=== PATIENT | female | born 1960 | race Caucasian/White ===

== ENCOUNTER 2020-10-12 10:32 | Emergency (ER) | payer MEDICAID ==
--- NOTE | 2020-10-12 11:22 | EDM.PDOC ---
ED HPI GENERAL MEDICAL PROBLEM - General Chief Complaint: Neuro Symptoms/Deficits Stated Complaint: NEUROLOGICAL Time Seen by Provider: 10/12/20 11:03 Source of Information: Reports: Patient, Family, RN Notes Reviewed History Limitations: Reports: No Limitations - History of Present Illness INITIAL COMMENTS - FREE TEXT/NARRATIVE: 60-year-old female presents to the emergency department today complaint of slurred speech, last known well time was about 930 today for hour and a half prior to presentation however feels her speech has returned to baseline. Does have a known history of DVT which she is on Coumadin also admits that she has been having problems with confusion and balance issues for over the last week or so also admits to 30 pound weight loss in 2 months. At this time she is asymptomatic - Related Data Allergies Allergy/AdvReac Type Severity Reaction Status Date / Time propoxyphene [From Darvon] AdvReac Irritabilit Verified 10/12/20 10:44 y Home Meds: Home Meds Citalopram [Citalopram HBr] 20 mg PO DAILY 09/01/18 [History] LORazepam 0.5 mg PO ASDIRECTED PRN 09/01/18 [History] Levothyroxine [Sythroid] 100 mcg PO DAILY 09/01/18 [History] Lisinopril 10 mg PO DAILY 09/01/18 [History] Metoprolol Tartrate 50 mg PO BID 09/01/18 [History] Warfarin [Coumadin] 5 mg PO DAILY 09/01/18 [History] Sertraline [Zoloft] 100 mg PO BID 10/12/20 [History] Sulfamethoxazole/Trimethoprim [Bactrim Ds Tablet] 1 each PO BID #6 tablet 10/12/20 [Rx] Past Medical History HEENT History: Reports: Impaired Vision Cardiovascular History: Reports: Hypertension Respiratory History: Reports: COPD Gastrointestinal History: Reports: Hiatal Hernia, Irritable Bowel Syndrome PLANNING LEAD History: Reports: Musculoskeletal History: Reports: Back Pain, Chronic Psychiatric History: Reports: Anxiety, Depression, Panic Attack Endocrine/Metabolic History: Reports: Hypothyroidism Hematologic History: Reports: Anticoagulation Therapy, Blood Transfusion(s), Other (See Below) - Infectious Disease History Infectious Disease History: Reports: Chicken Pox, Measles - Past Surgical History Head Surgeries/Procedures: Reports: None HEENT Surgical History: Reports: Adenoidectomy, Tonsillectomy Cardiovascular Surgical History: Reports: None Respiratory Surgical History: Reports: None GI Surgical History: Reports: Appendectomy, Cholecystectomy, Hernia, Abdominal, Other (See Below) Other GI Surgeries/Procedures: bowel surgery Endocrine Surgical History: Reports: Thyroidectomy Musculoskeletal Surgical History: Reports: Knee Replacement Dermatological Surgical History: Reports: None Social & Family History - Tobacco Use Tobacco Use Status *Q: Current Every Day Tobacco User Years of Tobacco use: 45 Packs/Tins Daily: 1 Used Tobacco, but Quit: No Second Hand Smoke Exposure: No - Caffeine Use Caffeine Use: Reports: Coffee, Soda, Tea - Recreational Drug Use Recreational Drug Use: No ED ROS GENERAL - Review of Systems Review Of Systems: See Below Constitutional: Reports: No Symptoms HEENT: Reports: No Symptoms Respiratory: Reports: No Symptoms Cardiovascular: Reports: No Symptoms GI/Abdominal: Reports: No Symptoms : Reports: No Symptoms Neurological: Reports: Confusion, Dizziness, Trouble Speaking ED EXAM, NEURO - Physical Exam Exam: See Below Text/Narrative:: Cranial nerves II test with pupillary light reflex 5 mm to 3 mm bilaterally, CN III test pupillary constriction, lid elevation and eye abduction bilaterally, CN IV downward movement of eyes bilaterally, CN V good jaw movement, CN lateral deviation of the eyes bilaterally to finger movement, CN VII symmetrical smile shows teeth without difficulty, CN VIII pass finger rub to ears bilaterally, CN IX adequate voice and tone, CN X adequate voice and tone no difficulty swallowing, CN XI can shrug shoulders without difficulty, CN XII can stick tongue out without difficulty, cranial nerves II to XII intact as tested, power is 5 out 5 in upper and lower extremities, patellar reflex, biceps reflex +2 can do finger to nose without difficulty, no dysdiadochokinesis, no difficulty with rapid alternating movements can do [id number] without difficulty, Romberg is negative, has adequate gait can do heel to toe, can toe walk and heel walk no cerebellar dysfunction without difficulty, no focal neurologic deficit Exam Limited By: No Limitations General Appearance: Alert, WD/WN, No Apparent Distress Respiratory/Chest: No Respiratory Distress, Lungs Clear, Normal Breath Sounds, No Accessory Muscle Use, Chest Non-Tender Cardiovascular: Regular Rate, Rhythm, No Murmur GI/Abdominal: Soft, Non-Tender Neurological: Alert, CN II-XII Intact, No Motor/Sensory Deficits, Oriented x 3 Course - Vital Signs Last Recorded V/S: Last Vital Signs Temp 97.7 F 10/12/20 10:50 Pulse 84 10/12/20 10:50 Resp 18 10/12/20 10:50 BP 125/77 10/12/20 10:50 Pulse Ox 97 10/12/20 10:50 - Orders/Labs/Meds Orders: Active Orders 24 hr Category Date Time Status EKG Documentation Completion [RC] ASDIRECTED Care 10/12/20 11:17 Active Peripheral IV Care [RC] . DIRECTED Care 10/12/20 12:55 Active CULTURE URINE [RM] Urgent Lab 10/12/20 12:15 Received Sodium Chloride 0.9% [Normal Saline] 1,000 ml Med 10/12/20 13:00 Active IV ASDIRECTED Sodium Chloride 0.9% [Saline Flush] Med 10/12/20 12:55 Active 10 ml FLUSH ASDIRECTED PRN Peripheral IV Insertion Adult [OM.PC] Urgent Oth 10/12/20 12:55 Ordered EKG 12 Lead [EK] Stat Ther 10/12/20 11:16 Ordered Medication Orders Sodium Chloride (Normal Saline) 1,000 mls @ 500 mls/hr IV ASDIRECTED ERNA Last Admin: 10/12/20 13:06 Dose: 500 mls/hr Documented by: LEANDRA Sodium Chloride (Saline Flush) 10 ml FLUSH ASDIRECTED PRN PRN Reason: Keep Vein Open Last Admin: 10/12/20 13:06 Dose: 10 ml Documented by: LEANDRA Labs: Laboratory Tests 10/12/20 10/12/20 10/12/20 Range/Units 11:18 11:30 11:30 WBC 5.8 (4.5-11.0) K/uL RBC 4.68 (3.30-5.50) M/uL Hgb 13.3 (12.0-15.0) g/dL Hct 41.3 (36.0-48.0) % MCV 88 (80-98) fL MCH 28 (27-31) pg MCHC 32 (32-36) % Plt Count 248 (150-400) K/uL Neut % (Auto) 67 H (36-66) % Lymph % (Auto) 27 (24-44) % [place] % (Auto) 6 (2-6) % Eos % (Auto) 0 L (2-4) % Baso % (Auto) 0 (0-1) % PT 13.7 H (9.5-12.0) sec INR 1.26 H (0.80-1.20) APTT 25.0 L (27.0-36.0) sec Sodium (140-148) mmol/L Potassium (3.6-5.2) mmol/L Chloride (100-108) mmol/L Carbon Dioxide (21-32) mmol/L Anion Gap (5.0-14.0) mmol/L BUN (7-18) mg/dL Creatinine (0.6-1.0) mg/dL Est Cr Clr Drug Dosing mL/min Estimated GFR (MDRD) (>60) Glucose (74-106) mg/dL Lactic Acid (0.4-2.0) mmol/L Calcium (8.5-10.1) mg/dL Total Bilirubin (0.2-1.0) mg/dL AST (15-37) U/L ALT (12-78) U/L Alkaline Phosphatase (46-116) U/L Troponin I (0.000-0.056) ng/mL C-Reactive Protein (0.0-0.3) mg/dL Total Protein (6.4-8.2) g/dL Albumin (3.4-5.0) g/dL Globulin (2.3-3.5) g/dL Albumin/Globulin Ratio (1.2-2.2) Urine Color Yellow (YELLOW) Urine Appearance Cloudy A (CLEAR) Urine pH 5.5 (5.0-8.0) Ur Specific [place] 1.030 (1.008-1.030) Urine Protein 30 H (NEGATIVE) mg/dL Urine Glucose (UA) Normal (NEGATIVE) mg/dL Urine Ketones Negative (NEGATIVE) mg/dL Urine Occult Blood Trace-intact H (NEGATIVE) Urine Nitrite Positive H (NEGATIVE) Urine Bilirubin Small (NEGATIVE) Urine Urobilinogen 0.2 (0.2-1.0) EU/dL Ur Leukocyte Esterase Small (NEGATIVE) Urine RBC 0-5 (0-5) Urine WBC 40-50 H (0-5) Ur Epithelial Cells Moderate Amorphous Sediment Few Urine Bacteria Many Urine Mucus Rare Ethyl Alcohol mg/dL 10/12/20 10/12/20 10/12/20 Range/Units 11:30 11:30 11:30 WBC (4.5-11.0) K/uL RBC (3.30-5.50) M/uL Hgb (12.0-15.0) g/dL Hct (36.0-48.0) % MCV (80-98) fL MCH (27-31) pg MCHC (32-36) % Plt Count (150-400) K/uL Neut % (Auto) (36-66) % Lymph % (Auto) (24-44) % [place] % (Auto) (2-6) % Eos % (Auto) (2-4) % Baso % (Auto) (0-1) % PT (9.5-12.0) sec INR (0.80-1.20) APTT (27.0-36.0) sec Sodium 143 (140-148) mmol/L Potassium 3.6 (3.6-5.2) mmol/L Chloride 108 (100-108) mmol/L Carbon Dioxide 25 (21-32) mmol/L Anion Gap 10.4 (5.0-14.0) mmol/L BUN 23 H D (7-18) mg/dL Creatinine 0.9 (0.6-1.0) mg/dL Est Cr Clr Drug Dosing 60.67 mL/min Estimated GFR (MDRD) > 60 (>60) Glucose 118 H (74-106) mg/dL Lactic Acid 2.0 (0.4-2.0) mmol/L Calcium 8.9 (8.5-10.1) mg/dL Total Bilirubin 0.3 (0.2-1.0) mg/dL AST 7 L (15-37) U/L ALT 13 (12-78) U/L Alkaline Phosphatase 97 (46-116) U/L Troponin I < 0.017 (0.000-0.056) ng/mL C-Reactive Protein 0.15 (0.0-0.3) mg/dL Total Protein 6.5 (6.4-8.2) g/dL Albumin 3.1 L (3.4-5.0) g/dL Globulin 3.4 (2.3-3.5) g/dL Albumin/Globulin Ratio 0.9 L (1.2-2.2) Urine Color (YELLOW) Urine Appearance (CLEAR) Urine pH (5.0-8.0) Ur Specific [place] (1.008-1.030) Urine Protein (NEGATIVE) mg/dL Urine Glucose (UA) (NEGATIVE) mg/dL Urine Ketones (NEGATIVE) mg/dL Urine Occult Blood (NEGATIVE) Urine Nitrite (NEGATIVE) Urine Bilirubin (NEGATIVE) Urine Urobilinogen (0.2-1.0) EU/dL Ur Leukocyte Esterase (NEGATIVE) Urine RBC (0-5) Urine WBC (0-5) Ur Epithelial Cells Amorphous Sediment Urine Bacteria Urine Mucus Ethyl Alcohol < 3 mg/dL Meds: Medications Generic Name Dose Route Start Last Admin Trade Name Freq PRN Reason Stop Dose Admin Sodium Chloride 1,000 mls @ 500 mls/hr 10/12/20 13:00 10/12/20 13:06 Normal Saline IV 500 mls/hr ASDIRECTED ERNA Administration Sodium Chloride 10 ml 10/12/20 12:55 10/12/20 13:06 Saline Flush FLUSH 10 ml ASDIRECTED PRN Administration Keep Vein Open Discontinued Medications Generic Name Dose Route Start Last Admin Trade Name Freq PRN Reason Stop Dose Admin Sodium Chloride 100 mls @ 3.5 mls/sec 10/12/20 13:30 10/12/20 13:38 Normal Saline IV 10/12/20 13:31 3.5 mls/sec ASDIRECTED ERNA Administration Iopamidol 100 ml 10/12/20 13:30 10/12/20 13:38 [id number] (76%) IV 10/12/20 13:31 100 ml . DIRECTED ERNA Administration Ketorolac Tromethamine 30 mg 10/12/20 12:55 10/12/20 13:04 Toradol IVPUSH 10/12/20 12:56 30 mg ONETIME ONE Administration Sodium Chloride 10 ml 10/12/20 13:23 Saline Flush FLUSH 10/12/20 13:24 ONETIME ONE Departure - Departure Time of Disposition: 15:04 Disposition: Home, Self-Care 01 Condition: Fair Clinical Impression: Stroke-like symptoms Urinary tract infection Qualifiers: Urinary tract infection type: acute cystitis Hematuria presence: without hematuria Qualified Code(s): N30.00 - Acute cystitis without hematuria - Discharge Information Prescriptions: Sulfamethoxazole/Trimethoprim [Bactrim Ds Tablet] 1 each PO BID #6 tablet Instructions: Urinary Tract Infection, Adult, [id number] Referrals: Stephen Duvall Sr, MD [Primary Care Provider] - Forms: ED Department Discharge Additional Instructions: Please follow-up with Dr. Duvall tomorrow I have spoken with him he is aware of your results, he plans to adjust your Coumadin and will finish the stroke work-up which may include an MRI of the brain, ultrasound of the carotids and echocardiogram., Call return to the emergency department worsening of symptoms Sepsis Event Note (ED) - Evaluation Sepsis Screening Result: No Definite Risk - Focused Exam Vital Signs: Vital Signs Temp Pulse Resp BP Pulse Ox 10/12/20 10:50 97.7 F 84 18 125/77 97 10/12/20 10:49 97.7 F 84 18 125/77 97 - My Orders Last 24 Hours: My Active Orders 10/12/20 11:16 EKG 12 Lead [EK] Stat 10/12/20 11:17 EKG Documentation Completion [RC] ASDIRECTED 10/12/20 12:15 CULTURE URINE [RM] Urgent 10/12/20 12:55 Peripheral IV Care [RC] . DIRECTED Sodium Chloride 0.9% [Saline Flush] 10 ml FLUSH ASDIRECTED PRN Peripheral IV Insertion Adult [OM.PC] Urgent 10/12/20 13:00 Sodium Chloride 0.9% [Normal Saline] 1,000 ml IV ASDIRECTED - Assessment/Plan Last 24 Hours: My Active Orders 10/12/20 11:16 EKG 12 Lead [EK] Stat 10/12/20 11:17 EKG Documentation Completion [RC] ASDIRECTED 10/12/20 12:15 CULTURE URINE [RM] Urgent 10/12/20 12:55 Peripheral IV Care [RC] . DIRECTED Sodium Chloride 0.9% [Saline Flush] 10 ml FLUSH ASDIRECTED PRN Peripheral IV Insertion Adult [OM.PC] Urgent 10/12/20 13:00 Sodium Chloride 0.9% [Normal Saline] 1,000 ml IV ASDIRECTED Plan: Assessment Acuity = acute Site and laterality = strokelike symptoms completely resolved Etiology = unknown Manifestations = none Location of injury = Home Lab values = CBC unremarkable INR subtherapeutic 1.26 troponin was negative remainder of CMP unremarkable urinalysis positive for nitrates 40-50 WBCs consistent with pyuria cultures pending CT CTA showed no acute process or stenosis Plan I did review lab work CT scan results with her she remained asymptomatic while in the emergency department also called and discussed care with her primary care at 1505 she is going to follow-up for further evaluation of strokelike symptoms outpatient setting. Because her urine is suspicious for urinary tract infection elected to treat empirically Bactrim DS 1 tab p.o. twice daily x3 days. She has an appointment with her primary care tomorrow for further evaluation This note was dictated using [employer] voice recognition software please call with any questions on syntax or grammar.
--- NOTE | 2020-10-12 12:45 | CT ---
Head wo Cont CLINICAL HISTORY: Slurred speech COMPARISON: March 23, 2020 TECHNIQUE: Transverse scans were obtained from the base of the skull through the vertex without IV contrast on a multislice, multidetector CT scanner. Auto dosage reduction and iterative reconstruction techniques employed. FINDINGS: No focal abnormal parenchymal density is identified. There is no mass effect, hemorrhage, or extraaxial collection. The basal cisterns and sulci over the convexities are mildly prominent. The ventricles are normal for age. IMPRESSION: No acute intracranial process Mild age-related atrophy
[2020-10-12] MEDS ORDERED: Sodium Chloride 0.9% 10 ML Syringe FLUSH PRN (12:55)
[2020-10-12] MEDS ORDERED: Ketorolac 30 MG/ML SDV IVPUSH ONE (12:55)
[2020-10-12] MEDS ORDERED: Sodium Chloride 0.9% 1,000 ML IV SCH (13:00)
[2020-10-12] MEDS ORDERED: Sodium Chloride 0.9% 10 ML Syringe FLUSH ONE (13:23)
[2020-10-12] MEDS ORDERED: Sodium Chloride 0.9% 100 ML IV SCH (13:30)
[2020-10-12] MEDS ORDERED: Iopamidol 755 Mg/ML 100 ML Bottle IV SCH (13:30)
--- NOTE | 2020-10-12 14:36 | CT ---
Ang Head CLINICAL HISTORY: Slurred speech. COMPARISON: Noncontrast CT brain same day TECHNIQUE: Multiple volume rendered and MIP 3D reconstructions were generated from source images obtained on a spiral scanner before and after intravenous iodinated contrast enhancement Auto dosage reduction and iterative reconstruction techniques employed. FINDINGS: Internal carotid arteries: Show some calcified plaque bilaterally without significant stenosis or aneurysm. Anterior cerebral arteries: The right A1 segment is somewhat atretic compared to left. The anterior communicating artery is patent Middle cerebral arteries: Normal course and contour Posterior cerebral arteries: The right posterior cerebral artery is fed by the right carotid circulation. The left posterior circulation is fed by the basilar artery. Vertebral/basilar arteries: There is a small distal right vertebral artery. Basilar artery is patent IMPRESSION: No significant stenosis or vessel cut off Atretic A1 segment of the right anterior cerebral artery Partial persistence of circulation on the right described above Small right vertebral artery
== END 2020-10-12 15:19 | disposition home or self-care (01) ==
LOC: JP.ED 10:32
DX: N30.00 Acute cystitis without hematuria (principal); R47.81 Slurred speech; I10 Essential (primary) hypertension; J44.9 Chronic obstructive pulmonary disease, unspecified; E03.9 Hypothyroidism, unspecified; Z72.0 Tobacco use; Z88.8 Allergy status to other drugs, medicaments and biological substances; Z79.01 Long term (current) use of anticoagulants; Z79.899 Other long term (current) drug therapy
CPT/HCPCS: 36415; 70450; 70496; 80053; 80307; 81001; 83605; 84484; 85025; 85610; 85730; 86140; 87086; 87088; 87186; 93005; 96374; 99285; J1885; J7030; Q9967; 99284

== ENCOUNTER 2022-05-12 18:42 | Emergency (ER) | payer OTHER, MEDICAID ==
[~2022-05-12 18:42] MED LIST: Sodium Chloride 0.9% 10 ML Syringe FLUSH PRN
[2022-05-12 19:14] LABS: ESTIMATED GFR 72 mL/min (>60)
[2022-05-12] MEDS ORDERED: Sodium Chloride 0.9% 75 ML IV SCH (19:15)
[2022-05-12] MEDS ORDERED: Iopamidol 612 MG/ML 100 ML Bottle IV SCH (19:15)
== END 2022-05-12 21:15 | disposition home or self-care (01) ==
LOC: JP.ED 18:42
DX: S09.90XA Unspecified injury of head, initial encounter (principal); J44.9 Chronic obstructive pulmonary disease, unspecified; I10 Essential (primary) hypertension; Z88.8 Allergy status to other drugs, medicaments and biological substances; Z79.899 Other long term (current) drug therapy; Z90.49 Acquired absence of other specified parts of digestive tract; V49.40XA Driver injured in collision with unspecified motor vehicles in traffic accident, initial encounter; Y92.410 Unspecified street and highway as the place of occurrence of the external cause
CPT/HCPCS: 36415; 70450; 71260; 72125; 74177; 80053; 80305; 80307; 81001; 85025; 85610; 85730; 99284; J3490; Q9967